=== PATIENT | female | born 1995 | race Caucasian/White ===

== ENCOUNTER 2017-05-06 05:38 | Inpatient (IN) | payer MEDICAID ==
[~2017-05-06] VITALS: Ht 154.9 cm; Wt 79.4 kg
[~2017-05-06 05:38] MED LIST: ACE3 PO; AMO250L PO; FERR-53 PO; HYDEL PO; IBUP800T37 PO; PREN-127 PO; bcp
[2017-05-07] MEDS ORDERED: OXYTOCIN 30 UNIT/D5LR 500 ML 500 ML IV PRN ×2 (05:24)
[2017-05-07] MEDS ORDERED: FAMOTIDINE(*) 20MG/50ML PREMIX 50 ML IVPB PRN (05:24)
[2017-05-07] MEDS ORDERED: TERBUTALINE SULF 1 MG/ML VIAL SUBQ PRN (05:25)
[2017-05-07] MEDS ORDERED: cefOXitin/DEX(*) 2GM/50ML PREM 50 ML IVPB PRN (05:25)
[2017-05-07] MEDS ORDERED: LIDOCAINE 1% LOCAL 300 MG/30ML INJ PRN (05:25)
[2017-05-07] MEDS ORDERED: METOCLOPRAMIDE 10 MG/2 ML SDV IVP PRN (05:25)
[2017-05-07] MEDS ORDERED: ACETAMINOPHEN 500 MG TAB PO PRN (05:25)
[2017-05-07] MEDS ORDERED: LIDOCAINE/SOD BICARB 8.4% SYR SC PRN (05:25)
[2017-05-07] MEDS ORDERED: fentaNYL CITR 100 MCG/2 ML AMP IVP PRN (05:25)
[2017-05-07] MEDS ORDERED: ONDANSETRON 4 MG/2 ML VIAL IVP PRN (05:25)
[2017-05-07] MEDS ORDERED: MISOPROSTOL 25 MCG CAP PV PRN ×2 (05:25→08:50)
[2017-05-07 05:50] VITALS: BP 116/68; Ht 154.9 cm; Wt 79.4 kg
[2017-05-07 06:11] LABS: PLATELET COUNT, AUTOMATED 169 K/uL (150-450)
[2017-05-07] MEDS: LR(*) 1000 ML BAG 1,000 ML IV SCH ×3 (06:12→18:20)
[2017-05-07] MEDS: DLR(*) 1000 ML BAG 1,000 ML IV SCH ×3 (06:43→21:24)
--- NOTE | 2017-05-07 08:36 | History & Physical ---
History of Present Illness Age of Patient: 21 : 2 Para or TPAL: 1001 EDC per LMP: Apr 30, 2017 Estimated Gestational Age: 41 Chief Complaint INDUCTION OF LABOR History of Present Illness The patient is a 21 year old 2 para 1001 admitted at 41 weeks estimated gestational age with an estimated date of delivery 04/30/17 . Patient is admitted with complaint of for induction of labor . No vaginal bleeding. Good movement and occasional contractions. She was evaluated for active labor. She had an uncomplicated course. Her record was reviewed. History Allergies: Coded Allergies: No Known Drug Allergies (Unverified , 09/04/11) Social History: Denies current use of tobacco, alcohol, or recreational drugs. Med Rec Home Meds Reported Medications Vits W-Ca,Fe,Fa(<1MG) ( VITAMINS) 1 Each Tablet, 1 EACH PO DAILY, TAB 11/25/15 Discontinued Scripts Ferrous Sulfate (FERROUS SULFATE) 325 Mg Tablet, 325 MG PO DAILY, #30 TAB 0 Refills Prov:MARÍA ELENA DRAKE MD 11/27/15 Ibuprofen (IBUPROFEN) 800 Mg Tablet, 800 MG PO Q8H, #30 TAB 0 Refills Prov:MARÍA ELENA DRAKE MD 11/27/15 Acetaminophen/Codeine (TYLENOL #3 (OR EQUIV)) 1 Ea Tab, 1-2 EACH PO Q4H Y for PAIN, #14 TAB 0 Refills Prov:MARÍA ELENA DRAKE MD 11/27/15 Exam General Exam Vital Signs Vital Signs Date Time Temp Pulse Resp B/P (MAP) Pulse Ox O2 Delivery O2 Flow Rate FiO2 05/07/17 05:50 99.0 89 18 116/68 (84) 96 Room Air Cardiovascular: Regular Rate and Rhythm Respiratory: Clear to Auscultation Abdomen: Gravid - Non-Tender Extremities: No Edema Cervical Dialation: 2.5 Cervical Effacement (%): 75 Cervical Consistency: Moderate Cervical Position: Mid Station: -2 Presentation: Vertex Uterine Contractions(Q min): 5 Uterine Contraction Strength: Mild Fetus Heart Tones: 130 Heart Tone Variabilty: Moderate FHT Category: II Medical Decision Making Data Points Result Diagram: 05/07/17 0600 Assessment and Plan Problems: (1) Post-dates Assessment & Plan: pitiocin initiated this am with no effect on cervix, moderate consistency. Will likely benefit from softening with prostaglandin. Will stop pitiocin and see if contraction pattern slows Copies to: LELIA CYR MD Problem Qualifiers (1) Post-dates : Post-term type: 40-42 weeks gestation Qualified Codes: O48.0 - Post -term LELIA CYR MD May 07, 2017 08:35
--- NOTE | 2017-05-07 13:26 | Labor Progress Note ---
Labor Subjective Progress Notes Subjective feeling mild uterine contractions Labor Pain: Mild Labor Objective Vital Signs Vital Signs Date Time Temp Pulse Resp B/P (MAP) Pulse Ox O2 Delivery O2 Flow Rate FiO2 05/07/17 05:50 99.0 89 18 116/68 (84) 96 Room Air Cervical Dialation: 3 Cervical Effacement (%): 75 Cervical Consistency: Moderate Cervical Position: Mid Station: -2 Presentation: Vertex Uterine Contractions(Q min): 4 Uterine Contraction Strength: Mild Fetus Heart Tones: 140 Heart Tone Variabilty: Moderate FHT Accelerations: 15X15 FHT Category: I Other Result Diagram: 05/07/17 0600 Assessment and Plan Problems: (1) Post-dates Assessment & Plan: mildly softer cervix, will start pitocin if needed to increase uterine contraction strength, AROM when able Problem Qualifiers (1) Post-dates : Post-term type: 40-42 weeks gestation Qualified Codes: O48.0 - Post -term LELIA CYR MD May 07, 2017 13:26
[2017-05-07] MEDS ORDERED: BUPIVACAINE 0.25% MPF INJ EPI PRN (16:50)
[2017-05-07] MEDS ORDERED: LIDOCAINE/PF 2% 200MG/10ML AMP 200 MG/10 ML AMPUL EPI PRN (16:50)
[2017-05-07] MEDS ORDERED: LIDO/EPI 2% MPF 1:200,000 20ML EPI PRN (16:50)
[2017-05-07] MEDS ORDERED: BUPIVACAINE 0.5% INJ 30ML VIAL EPI PRN (16:50)
[2017-05-07] MEDS ORDERED: FENTANYL/ROPIVACAINE 100 ML BAG EPI PRN (16:50)
[2017-05-07] MEDS ORDERED: fentaNYL CITR 100 MCG/2 ML AMP IT PRN (16:50)
[2017-05-07] MEDS ORDERED: EPIDURAL KEYS XX PRN (17:00)
--- NOTE | 2017-05-07 17:48 | Labor Progress Note ---
Labor Subjective Progress Notes Subjective feeling comfortable with epidural Vaginal Discharge/Fluid: Clear Fluid Labor Pain: Comfortable Labor Objective Vital Signs Vital Signs Date Time Temp Pulse Resp B/P (MAP) Pulse Ox O2 Delivery O2 Flow Rate FiO2 05/07/17 05:50 99.0 89 18 116/68 (84) 96 Room Air Cervical Dialation: 3 Cervical Effacement (%): 80 Cervical Consistency: Soft Cervical Position: Mid Station: -1 Presentation: Vertex Uterine Contractions(Q min): 3 Fetus Heart Tones: 130 Heart Tone Variabilty: Moderate FHT Accelerations: 15X15 FHT Category: I Other Result Diagram: 05/07/17 0600 Assessment and Plan Problems: (1) Post-dates (2) Active labor at term Assessment & Plan: AROM clear fluid. will monitor for cervical change Problem Qualifiers (1) Post-dates : Post-term type: 40-42 weeks gestation Qualified Codes: O48.0 - Post -term LELIA YCR MD May 07, 2017 17:48
--- NOTE | 2017-05-07 18:04 | Anesthesia OB Pre-Anes Eval ---
History of Present Illness Anesthesia Start Date: May 07, 2017 Anesthesia Start Time: 17:03 OB Anesthesia Diagnosis: induction - elective Complications: None. EDC 04/30/17. EDC: Apr 30, 2017 : 2 Para: 1 Vital Signs: 99.0 89 18 116/68 96% Pain Ratin Result Diagram: 05/07/17 0600 Height (Inches): 61.00 Weight (Pounds): 175 BMI Calculated: 33.06 Past Medical History Surgical History: tonsillectomy Previous Anesthesia: epidural Attended Childbirth Classes?: No Hx Anesthesia Reactions: No Hx Family Anesthesia Reaction: No Home Meds Reported Medications Vits W-Ca,Fe,Fa(<1MG) ( VITAMINS) 1 Each Tablet, 1 EACH PO DAILY, TAB 11/25/15 Discontinued Scripts Ferrous Sulfate (FERROUS SULFATE) 325 Mg Tablet, 325 MG PO DAILY, #30 TAB 0 Refills Prov:MARÍA ELENA DRAKE MD 11/27/15 Ibuprofen (IBUPROFEN) 800 Mg Tablet, 800 MG PO Q8H, #30 TAB 0 Refills Prov:MARÍA ELENA DRAKE MD 11/27/15 Acetaminophen/Codeine (TYLENOL #3 (OR EQUIV)) 1 Ea Tab, 1-2 EACH PO Q4H Y for PAIN, #14 TAB 0 Refills Prov:MARÍA ELENA DRAKE MD 11/27/15 Allergies: Coded Allergies: No Known Drug Allergies (Unverified , 09/04/11) Anesthesia OB ROS Neurological: No migraines/headaches, No seizures, No neuropathy, No other Contacts Statement: Glasses ENT: Denies Tooth caps, Denies Loose teeth, Denies Chipped teeth, Denies Dentures, Denies Bridges, Denies Retainers, Denies Veneers, Denies Implants, Denies Tongue ring, Denies Other Pulmonary: No asthma, No smoker (pks/day/yrs), No other Airway Class: lll Cardiovascular ROS: No edema, No arrhythmia, No other GI ROS: clear liquids Last Solids Date: May 06, 2017 Last Solids Time: 19:30 ROS: No Herpes, No STD(s), No Liver Disease, No Renal Disease, No Other Endocrine ROS: No diabetes, No gestational diabetes, No thyroid disorder, No other Musculoskeletal ROS: No low back pain, No low back injury, No scoliosis, No other ASA Classification: 2 Assessment and Plan Anesthesia Plan: CSE Assessment Pain now a 07/25. Requesting analgesia. ABIMAEL BOOTH CRNA May 07, 2017 07:51
--- NOTE | 2017-05-07 18:07 | Procedure Note ---
Anesthetic Placement Note Anesthesia Plan: CSE Permit for Anesthesia Signed: Yes Anesthesia Technique: Patient Sitting Anesthesia Prep: Chlorhexidine Interspace: L 3-4 Local Anesthetic: 1% Lidocaine, 25 Gauge Needle Amount Local - cc's: 2 Anesthesia Needle: 17g Touhy/Schliff Anesthesia Attempts: 1 Loss of Resistance: Normal Saline Depth of LOS (cm): 5 Epidural Needle Placement: No CSF, No Blood, No Parasthesia Intrathecal Needle: 27 Gauge Pencan Cerebral Spinal Fluid: Yes, Clear Catheter Insertion (cm): 5 Catheter Type: Rosenberg - Spring Wound Epidural Dressing: Tegaderm, Tape Anesthesia Tray: Lot Number ([id number]), Expiration Date (2018-01-15), Reference Number ([id number]) Anesthesia Medications: Intrathecal Dose: mcg Fentanyl (15), mg Marcaine MPF (1.75), Time (1711) Epidural Test Dose: 1.5 Lido/Epi (1:200,000), Dose - mL (5) Epidural Loading Dose: 0.2% Ropivicaine, With Fentanyl 2mcg/ml, Dose - ml (6), Time Epidural Infusion: 0.2% Ropivicaine, With Fentanyl 2mcg/ml, Start Time: (1727) Epidural Pump Setting: Bolus Dose - mL (4), Lockout - Minutes (20), Maintenance Rate - mL/hr (6), Maximum per Hour - mL (18) Complications: None Comment: Immediate onset of relief. Patient tolerated procedure well. ABIMAEL BOOTH CRNA May 07, 2017 18:07
--- NOTE | 2017-05-07 20:45 | Labor Progress Note ---
Labor Subjective Progress Notes Subjective comfortable with epidural Vaginal Discharge/Fluid: Bloody Show Labor Pain: Comfortable Labor Objective Vital Signs Vital Signs Date Time Temp Pulse Resp B/P (MAP) Pulse Ox O2 Delivery O2 Flow Rate FiO2 05/07/17 05:50 99.0 89 18 116/68 (84) 96 Room Air Cervical Dialation: 6 Cervical Effacement (%): 95 Cervical Consistency: Soft Cervical Position: Anterior Station: 0 Presentation: Vertex Uterine Contractions(Q min): 3 Uterine Contraction Strength: Strong Fetus Heart Tones: 130 Heart Tone Variabilty: Moderate FHT Category: I Other Result Diagram: 05/07/17 0600 Assessment and Plan Problems: (1) Post-dates (2) Active labor at term Assessment & Plan: making slow progress, IUPC placed will assess uterine contraction strength and adjust as needed Problem Qualifiers (1) Post-dates : Post-term type: 40-42 weeks gestation Qualified Codes: O48.0 - Post -term LELIA CYR MD May 07, 2017 20:45
[2017-05-07] MEDS ORDERED: NS(*) 0.9% 1000 ML BAG 1,000 ML PV PRN (21:58)
[2017-05-07] MEDS ORDERED: BUPIVACAINE 0.5% INJ 30ML VIAL ONE (23:41)
--- NOTE | 2017-05-07 23:50 | Labor Progress Note ---
Labor Subjective Progress Notes Subjective patient pushing Vaginal Discharge/Fluid: Bloody Show Labor Pain: Comfortable Labor Objective Vital Signs Vital Signs Date Time Temp Pulse Resp B/P (MAP) Pulse Ox O2 Delivery O2 Flow Rate FiO2 05/07/17 05:50 99.0 89 18 116/68 (84) 96 Room Air Cervical Dialation: 10 Cervical Effacement (%): 100 Cervical Consistency: Soft Cervical Position: Anterior Station: +1 Uterine Contractions(Q min): 3 Uterine Contraction Strength: Strong Fetus Heart Tones: 150 Heart Tone Variabilty: Moderate FHT Category: II Other Result Diagram: 05/07/17 0600 Assessment and Plan Problems: (1) Post-dates (2) Active labor at term Assessment & Plan: pushed well for an hour no change in station, this weight greater than last, desires c section for CPD Problem Qualifiers (1) Post-dates : Post-term type: 40-42 weeks gestation Qualified Codes: O48.0 - Post -term LELIA CYR MD May 07, 2017 23:50
[2017-05-07] MEDS ORDERED: OXYTOCIN 10 UNIT/ML SDV ONE (23:59)
[2017-05-08] VITALS (31 sets, daily range): BP systolic 92–120; BP diastolic 41–76
[2017-05-08] MEDS ORDERED: MORPHINE PF 5 MG/10 ML AMP ONE
[2017-05-08] MEDS ORDERED: BUPIV/EPI 0.25% 1:200,000 50ML INFIL ONE (00:32)
[2017-05-08] MEDS ORDERED: LIDO/EPI 2% MPF 1:200,000 20ML ONE (00:32)
[2017-05-08] MEDS ORDERED: DEXAMETHASONE SOD 4 MG/ML VIAL ONE (00:44)
[2017-05-08] MEDS ORDERED: PHENYLEPHRINE/NS/PF 0.4MG/10ML ONE (00:44)
[2017-05-08] MEDS ORDERED: OXYTOCIN 10 UNIT/ML SDV ONE ×2 (00:54→01:30)
[2017-05-08] MEDS ORDERED: METHYLERGONOVINE MAL 0.2MG/ML ONE (01:00)
[2017-05-08] MEDS ORDERED: PHENYLEPHRINE 10 MG/1 ML VIAL ONE (01:01)
[2017-05-08] MEDS ORDERED: NS 0.9% 20 ML SDV 20 ML ONE (01:01)
[2017-05-08] MEDS ORDERED: KETOROLAC 30 MG/ML VIAL ONE (01:18)
[2017-05-08] MEDS ORDERED: FAMOTIDINE(*) 20MG/50ML PREMIX 50 ML IVPB PRN (01:42)
[2017-05-08] MEDS ORDERED: OXYTOCIN 30 UNIT/D5LR 500 ML 500 ML IV PRN (01:42)
[2017-05-08] MEDS ORDERED: DLR(*) 1000 ML BAG 1,000 ML IV PRN (01:42)
--- NOTE | 2017-05-08 01:42 | Post Operative Note ---
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 8# 7.4 OZ NORMAL UTERUS OVARIES AND TUBES [id number] Procedure(s): PLTCS Complications: 0 Fluids Fluids: 2300 CC LR IV Estimated Blood Loss: 900 CC Dictated Date OP Note Dictated: May 08, 2017 Time OP Note Dictated: 01:50 Copies to: LELIA CYR MD, JOHN MD May 08, 2017 01:42
[2017-05-08] MEDS ORDERED: PROMETHAZINE 25 MG/ML 1 ML AMP IVP PRN (01:45)
[2017-05-08] MEDS ORDERED: ONDANSETRON 4 MG/2 ML VIAL IV PRN (01:45)
[2017-05-08] MEDS ORDERED: METOCLOPRAMIDE 10 MG/2 ML SDV IV PRN (01:45)
[2017-05-08] MEDS ORDERED: FLUSH 10 ML SYR IVP PRN (01:45)
[2017-05-08] MEDS ORDERED: LANOLIN OINT 7 GM TUBE TP PRN (01:45)
--- NOTE | 2017-05-08 01:58 | Anesthesia Progress Note ---
Progress/Maintenance Anesthesia Note Date: May 07, 2017 Anesthesia Note Time: 20:20 Pain Intensity: 0 Pump: On Pump Rate (ML/HR): 6 Sensory Level: T-10 Motor Level: Bending Knees-Bilateral Dilatation: 4 Position: Right, Tilt Drug Bolus: 0.2% Ropivicaine, Fentanyl 2mcg/ml Report Received From: Other Assessment and Plan Assessment Feeling pressure of contractions but no pain. Anesthesia Stop Day: May 07, 2017 Anesthesia Stop Time: 23:57 Epidural Catheter Removal: Removed Catheter Intact, Yes, Removed by: (Rica Booth CRNA) Removal Date: May 08, 2017 Removal Time: 01:40 Condition Patient to . Epidural used. Local infiltrated in skin for incision but otherwise epidural worked well for surgery. ABIMAEL BOOTH CRNA May 07, 2017 20:42
[2017-05-08] MEDS ORDERED: ACETAMINOPHEN(*)1000 MG/100 ML 100 ML IVPB SCH (03:00)
--- NOTE | 2017-05-08 03:56 | OPERATIVE REPORT 1 ---
EVENT DATE: May 08, 2017 SURGEON: Noé Ragsdale MD SURVEY WORKERS SUPERVISOR: Gisell Pringle CRNA RESEARCH PHARMACIST: Yesica from the OR PREOPERATIVE DIAGNOSIS 1. Intrauterine at 41and 1/7 weeks. 2. Cephalopelvic disproportion. 3. Failure to progress. POSTOPERATIVE DIAGNOSIS 1. Intrauterine at 41and 1/7 weeks. 2. Cephalopelvic disproportion. 3. Failure to progress. PROCEDURE PERFORMED Primary low transverse section. COMPLICATIONS None. FLUIDS 2200 mL of lactated ringers IV. ESTIMATED BLOOD LOSS 900 mL. INDICATIONS The patient is a 21-year-old at 41 and 1/7 weeks estimated gestational age, was admitted for induction of labor for post term. She was initially started on Pitocin, was not responding, was then stopped. She was given Cytotec, which did soften her cervix. She later received Pitocin augmentation, received an epidural. Artificial rupture of membranes was performed with clear fluid. She made slow progress, but then did progress to complete, was then able to make any progress with pushing effectively over an hour. After discussion of risks and alternatives, elects to proceed with primary C section. FINDINGS Male infant with Apgars 8 at 1 minute, 9 at 5 minutes, weighing 3838 grams or 8 pounds, 7.4 ounces, normal uterus, ovaries and tubes. DESCRIPTION OF PROCEDURE After informed consent was obtained, the patient was taken to the operating room with the IV running, placed in a supine position with leftward tilt. She was prepped and draped in a usual fashion. A Pfannenstiel skin incision was made, carried through to the underlying layer of fascia with the Bovie. The fascia was nicked in the midline, extended laterally with Dinh scissors. Bilaterally, the rectus fascia was dissected off the rectus muscles with both blunt and sharp dissection on the superior then inferior aspect of the incision. The rectus muscles were divided in the midline, the peritoneum entered sharply with Metzenbaum scissors. A peritoneal incision was extended superiorly and inferiorly with good visualization of the bladder. Bladder blade was placed. Bladder flap was created with Metzenbaum scissors. Bladder blade was then replaced. A low transverse uterine incision was made with a scalpel. The incision was extended laterally with digital technique of the pulling unit operator. The infants vertex was delivered out of the pelvis and through the uterine incision. The oropharynx and nasopharynx were bulb suctioned. The remainder of the infant delivered with ease. The infant was noted to have spontaneous cry and spontaneous movement of all four extremities. Cord was clamped x 2 and cut, handed to nursing personnel, who were in attendance for delivery. Cord blood was obtained. Placenta delivered intact manually. Uterus was exteriorized and cleared of all clot and debris. Uterine incision was closed with #0-Vicryl in a running-locked fashion. A second imbricating layer of #0-Vicryl was used. [id number] sutures were required in the middle of the incision to create hemostasis. Posterior cul-de-sac was copiously irrigated. Inspection of the uterine incision revealed excellent hemostasis. The uterus was returned to the abdominal cavity. Left and right paracolic gutter were cleared of all clot and debris. Uterine incision was once again inspected, noted to be hemostatic. The peritoneum and the rectus muscles were approximated with 3-0 Vicryl in a running locked fashion. Subfascial compartment was inspected, any bleeding made hemostatic with the Bovie. Irrigation was performed. The fascia was then closed with #0-Vicryl in a running fashion. The subcutaneous space was irrigated, any bleeding made hemostatic with Bovie. The subcutaneous space was approximated with 3-0 Vicryl in a running fashion, the skin closed with mary. All sponge, lap, needle and instrument counts were correct. Patient was taken to the recovery room in stable condition. VIVEK
[2017-05-08] MEDS ORDERED: cefOXitin/DEX(*) 2GM/50ML PREM 50 ML IVPB ONE (05:49)
[2017-05-08] MEDS: KETOROLAC 30 MG/ML VIAL IVP SCH ×3 (06:09→17:41)
[2017-05-08] MEDS ORDERED: BENZOCAINE 20% 60 ML BTL TP PRN (07:25)
--- NOTE | 2017-05-08 07:34 | OB/GYN Progress Note ---
OB Subjective Progress Notes Subjective Pain controlled, Tolerating diet and activity. Baby . Normal lochia GI: NEG Nausea, NEG Vomiting : Voiding Well Pain: Mild OB Objective Physical Exam Vital Signs Date Time Temp Pulse Resp B/P (MAP) Pulse Ox O2 Delivery O2 Flow Rate FiO2 05/08/17 06:00 76 16 109/55 (73) 97 Nasal Cannula 1.0 05/08/17 03:00 98.3 Cardiovascular: Regular Rate and Rhythm Respiratory: Clear to Auscultation Abdomen: Soft, Non-Tender, Non-Distended, Fundus Firm Extremities: No Edema Result Diagram: 05/07/17 0600 Assessment and Plan Problems: (1) Post-dates (2) Active labor at term (3) care following delivery Assessment & Plan: Pain controlled, Tolerating diet and activity. Baby . Normal lochia Problem Qualifiers (1) Post-dates : Post-term type: 40-42 weeks gestation Qualified Codes: O48.0 - Post -term LELIA CYR MD May 08, 2017 07:34
[2017-05-08] MEDS ORDERED: IBUP800T37 PO (07:36)
[2017-05-08] MEDS ORDERED: OXYC-373 PO (07:36)
[2017-05-08] MEDS: FAMOTIDINE 20 MG TAB PO SCH ×2 (08:46→21:12)
[2017-05-08] MEDS: DOCUSATE CALCIUM 240 MG CAP PO SCH ×2 (08:46→21:11)
[2017-05-08] MEDS: SIMETHICONE 80 MG CHEW CHEW SCH ×4 (08:46→21:12)
[2017-05-08] MEDS: GLYCERIN/WITCH HAZEL LEAF 1 PK TOP PRN (08:47)
[2017-05-08] MEDS: ACETAMINOPHEN(*)1000 MG/100 ML 100 ML IVPB SCH ×2 (08:47→15:18)
--- NOTE | 2017-05-08 09:09 | Anesthesia Post Eval Note ---
Anesthesia Post Eval Note 113/53 88 97% Pt able to participate in Eval: Yes Cardiovascular Status: Satisfactory Respiratory Status: Satisfactory Pain Managment: Satisfactory PO Nausea/Vomiting: Satisfactory Temperature Management: Satisfactory Mental Status: Satisfactory, Alert, Oriented X3 Post-Op Hydration Status: Satisfactory, Tolerating PO Well Anesthesia Type: CSE Anesthesia Tolerance: Pain controlled with medication. No PONV. Minimal itching. ABIMAEL BOOTH CRNA May 08, 2017 09:09
[2017-05-08] MEDS ORDERED: INFLUENZA VIRUS VAC 0.5 ML SYR IM ONLY ONE (10:00)
[2017-05-08] MEDS ORDERED: MEASLES,MUMP,RUBELLA VAC 0.5ML SUBQ ONE (10:00)
[2017-05-08] MEDS ORDERED: DIPHTH/TETANUS/ACEL. PERTUSSIS IM ONLY ONE (10:00)
[2017-05-08] MEDS: HYDROmorphone HCL 2 MG TAB PO PRN ×3 (13:08→19:26)
[2017-05-08 13:45] LABS: PLATELET COUNT, AUTOMATED 171 K/uL (150-450)
[2017-05-08] MEDS: FERROUS SULFATE 325 MG TAB PO SCH (16:35)
[2017-05-09] VITALS (31 sets, daily range): BP systolic 98–127; BP diastolic 50–73
[2017-05-09] MEDS: HYDROmorphone HCL 2 MG TAB PO PRN ×5 (00:33→19:30)
[2017-05-09] MEDS: IBUPROFEN 800 MG TAB PO SCH ×4 (00:33→23:52)
[2017-05-09] MEDS: DOCUSATE CALCIUM 240 MG CAP PO SCH ×2 (08:11→20:57)
[2017-05-09] MEDS: FERROUS SULFATE 325 MG TAB PO SCH ×2 (08:11→18:11)
[2017-05-09] MEDS: FAMOTIDINE 20 MG TAB PO SCH ×2 (08:11→20:57)
[2017-05-09] MEDS: SIMETHICONE 80 MG CHEW CHEW SCH ×4 (08:11→20:57)
--- NOTE | 2017-05-09 08:16 | OB/GYN Progress Note ---
OB Subjective Progress Notes Subjective Doing good this morning. Reports getting tired really easy when walking. Does also report that it feels like her heart is racing when she walks or moves. Denies any abnormal vaginal bleeding. Reports bleeding is very similar to her last delivery. . Tolerating regular diet. Ambulatory. GI: NEG Nausea, NEG Vomiting, NEG Flatus, NEG Bowel Movement : Voiding Well, Vaginal Bleeding, Moderate Pain: Mild, Tolerating PO Pain Meds Neurological: No Headache, No Other Eyes: No Visual Disturbances OB Objective Physical Exam Vital Signs Date Time Temp Pulse Resp B/P (MAP) Pulse Ox O2 Delivery O2 Flow Rate FiO2 05/09/17 04:25 98.4 88 16 110/63 (79) 94 Room Air 05/09/17 00:45 1.0 General Appearance: Alert/Awake/No Acute Distress Neurological: No Gross deficits Eyes: Normal Extraocular Movement & Vison, PERRLA ENT: Normal Neck: No Masses Cardiovascular: Normal Rhythm & Peripheral Pulses, Regular Rate and Rhythm Respiratory: No Respiratory Distress, Clear to Auscultation Abdomen: Soft, Non-Tender, Non-Distended, Fundus Firm Incision: Clean, Dry, Intact, [place] : Normal Musculoskeletal: No Weakness/Pain Extremities: No Edema Psychological: Alert & Oriented X3, Appropriate Mood & Affect Result Diagram: 05/09/17 0707 Assessment and Plan 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 Increase ambulation. See notes fo anemia. (4) ACUTE POSTHEMORRHAGIC ANEMIA Assessment & Plan: Pt typed and crossed for 2 units PRBC. Will transfuse at least 1 unit possibly both. Discussed with patient who agrees to receiving blood products. Problem Qualifiers (1) Post-dates : Post-term type: 40-42 weeks gestation Qualified Codes: O48.0 - Post -term FOUZIA ALEJANDRA May 09, 2017 08:16
[2017-05-09] MEDS ORDERED: NS(*) 0.9% 500 ML BAG 500 ML ONE (09:44)
--- NOTE | 2017-05-09 13:29 | OB/GYN Progress Note ---
OB Subjective Progress Notes Subjective STILL FEELING WEAK GI: POS Flatus, NEG Nausea, NEG Vomiting Pain: Mild OB Objective Physical Exam Vital Signs Date Time Temp Pulse Resp B/P (MAP) Pulse Ox O2 Delivery O2 Flow Rate FiO2 05/09/17 12:42 91 16 05/09/17 12:37 98.3 107/50 05/09/17 11:39 94 Room Air 05/09/17 07:00 1.0 Intake and Output 05/10/17 07:00 Intake Total 250 ml Output Total 300 ml Balance -50 ml Blood Product 250 ml Output Urine Total 300 ml # Voids 3 General Appearance: Alert/Awake/No Acute Distress Neurological: No Gross deficits Eyes: Normal Extraocular Movement & Vison, PERRLA ENT: Normal Neck: No Masses Cardiovascular: Normal Rhythm & Peripheral Pulses, Regular Rate and Rhythm Respiratory: No Respiratory Distress, Clear to Auscultation Abdomen: Soft, Non-Tender, Non-Distended, Bowel Sounds Present, Fundus Firm Incision: Clean, Dry, Intact, [place] : Normal Musculoskeletal: No Weakness/Pain Extremities: No Edema Psychological: Alert & Oriented X3, Appropriate Mood & Affect Result Diagram: 05/09/17 0707 Assessment and Plan Problems: (1) Post-dates (2) Active labor at term (3) care following delivery (4) ACUTE POSTHEMORRHAGIC ANEMIA Assessment & Plan: WILL TRANSFUSE 2ND UNITS OF BLOOD, ADD 1 UNIT OF FFP AND CHECK CBC AND ASSESS FOR SYMPTOMS OF ANEMIA AFTER TRANSFUSION Problem Qualifiers (1) Post-dates : Post-term type: 40-42 weeks gestation Qualified Codes: O48.0 - Post -term LELIA CYR MD May 09, 2017 13:29
[2017-05-09 18:47] LABS: PLATELET COUNT, AUTOMATED 150 K/uL (150-450)
[2017-05-10 01:02] VITALS: BP 125/63
--- NOTE | 2017-05-10 03:32 | OB/GYN Discharge Summary ---
Discharge Summary Reason for Hosp/Final Diag: (1) Post-dates (2) Active labor at term (3) care following delivery Hospital Course & Plan: IOL, FTP, PLTCS, had uterine atony, and symptomatic anemia, received 2 units PRBCS, and 1 unit FFP which improved symptoms. on day 2, Pain controlled, Tolerating diet and activity. (4) ACUTE POSTHEMORRHAGIC ANEMIA Lates Vital Signs Vital Signs Date Time Temp Pulse Resp B/P (MAP) Pulse Ox O2 Delivery O2 Flow Rate FiO2 05/10/17 01:02 99.1 104 16 125/63 (83) 92 Room Air 05/09/17 07:00 1.0 Weight (Pounds): 175 Result Diagram: 05/10/17 0202 Condition: Improved Discharge: Home, Self [facility] Meds Active Scripts Ferrous Sulfate (FERROUS SULFATE) 325 Mg Tablet.dr, 1 TAB PO BID, #60 TAB 0 Refills Prov:LELIA RAGSDALE MD 05/10/17 Docusate Calcium (DOCUSATE CALCIUM) 240 Mg Capsule, 1 CAP PO BID, #30 CAPSULE 0 Refills Prov:LELIA RAGSDALE MD 05/10/17 Oxycodone Hcl/Acetaminophen (OXYCODONE-ACETAMINOPHEN 5-325) 1 Each Tablet, 1-2 EACH PO Q4H Y for PAIN, #30 TAB 0 Refills TAKE 1-2 TABLET NEEDED FOR PAIN - NO CLOSER THAN EVERY 4 HOURS. Prov:LELIA RGASDALE MD 05/08/17 Ibuprofen (IBUPROFEN) 800 Mg Tablet, 1 TAB PO Q8H, #30 TAB 0 Refills Take with food every 8 hours. Prov:LELIA RAGSDALE MD 05/08/17 Reported Medications Vits W-Ca,Fe,Fa(<1MG) ( VITAMINS) 1 Each Tablet, 1 EACH PO DAILY, TAB 11/25/15 Discontinued Scripts Ferrous Sulfate (FERROUS SULFATE) 325 Mg Tablet, 325 MG PO DAILY, #30 TAB 0 Refills Prov:MARÍA ELENA DRAKE MD 11/27/15 Ibuprofen (IBUPROFEN) 800 Mg Tablet, 800 MG PO Q8H, #30 TAB 0 Refills Prov:MARÍA ELENA DRAKE MD 11/27/15 Acetaminophen/Codeine (TYLENOL #3 (OR EQUIV)) 1 Ea Tab, 1-2 EACH PO Q4H Y for PAIN, #14 TAB 0 Refills Prov:MARÍA ELENA DRAKE MD 11/27/15 Follow up with: Dr. Ragsdale [phone] Follow up in: 6 wks PP or PO, 2 wks PO Discharge Diet: As Tolerates Discharge Activity: Pelvic Rest Copies to: LELIA RAGSDALE MD Problem Qualifiers (1) Post-dates : Post-term type: 40-42 weeks gestation Qualified Codes: O48.0 - Post -term LELIA RAGSDALE MD May 10, 2017 03:32
[2017-05-10] MEDS ORDERED: FERR-41 PO (03:33)
[2017-05-10] MEDS ORDERED: DOCU240C67 PO (03:33)
[2017-05-10 03:50] VITALS: BP 104/53
[2017-05-10 07:25] VITALS: BP 110/63
[2017-05-10] MEDS: IBUPROFEN 800 MG TAB PO SCH (08:15)
[2017-05-10] MEDS: FERROUS SULFATE 325 MG TAB PO SCH (08:15)
[2017-05-10] MEDS: FAMOTIDINE 20 MG TAB PO SCH (09:20)
[2017-05-10] MEDS: SIMETHICONE 80 MG CHEW CHEW SCH ×2 (09:20→13:08)
[2017-05-10] MEDS: DOCUSATE CALCIUM 240 MG CAP PO SCH (09:21)
[2017-05-10 10:16] LABS: PLATELET COUNT, AUTOMATED 158 K/uL (150-450)
[2017-05-10] MEDS: GLYCERIN/WITCH HAZEL LEAF 1 PK TOP PRN (11:22)
--- NOTE | 2017-05-10 12:40 | OB/GYN Progress Note ---
OB Subjective Progress Notes Subjective Doing good this morning. Tolerating regular diet. Feels better after receiving blood. Lochia appropriate. . GI: NEG Nausea, NEG Vomiting, NEG Flatus, NEG Bowel Movement : Voiding Well, Vaginal Bleeding, Moderate Pain: Mild Neurological: No Headache, No Other Eyes: No Visual Disturbances OB Objective Physical Exam Vital Signs Date Time Temp Pulse Resp B/P (MAP) Pulse Ox O2 Delivery O2 Flow Rate FiO2 05/10/17 07:25 97.9 84 14 110/63 (79) 92 Room Air 05/09/17 07:00 1.0 Intake and Output 05/11/17 07:00 Intake Total 360 ml Balance 360 ml Intake Oral 360 ml General Appearance: Alert/Awake/No Acute Distress Neurological: No Gross deficits Eyes: Normal Extraocular Movement & Vison, PERRLA ENT: Normal Neck: No Masses Cardiovascular: Normal Rhythm & Peripheral Pulses, Regular Rate and Rhythm Respiratory: No Respiratory Distress, Clear to Auscultation Abdomen: Soft, Non-Tender, Non-Distended, Bowel Sounds Present, Fundus Firm Incision: Clean, Dry, Intact, [place] : Normal Musculoskeletal: No Weakness/Pain Extremities: No Cyanosis,Clubbing or Edema, No Edema Integumentary: Skin Intact without Lesions or Rash Psychological: Alert & Oriented X3, Appropriate Mood & Affect Result Diagram: 05/10/17 1003 05/10/17 1003 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 Follow up with Dr. Ragsdale in 2 weeks. (2) Active labor at term (3) care following delivery (4) ACUTE POSTHEMORRHAGIC ANEMIA Problem Qualifiers (1) Post-dates : Post-term type: 40-42 weeks gestation Qualified Codes: O48.0 - Post -term FOUZIA ALEJANDRA DO May 10, 2017 12:40
[2017-05-10 13:15] VITALS: BP 113/71
== END 2017-05-10 16:20 | disposition home or self-care (01) | DRG 765 ==
LOC: OB 05-07 05:22
PROVIDERS: ADMIT Obstetrics & Gynecology; ATTEND Obstetrics & Gynecology
PROC: 10907ZC Drainage of Amniotic Fluid, Therapeutic from Products of Conception, Via Natural or Artificial Opening (ICD-10-PCS; 2017-05-07)
PROC: 10H07YZ Insertion of Other Device into Products of Conception, Via Natural or Artificial Opening (ICD-10-PCS; 2017-05-07)
PROC: 3E0P7GC Introduction of Other Therapeutic Substance into Female Reproductive, Via Natural or Artificial Opening (ICD-10-PCS; 2017-05-07)
PROC: 10D00Z1 Extraction of Products of Conception, Low, Open Approach (ICD-10-PCS; principal; 2017-05-08 00:20)
PROC: 30233N1 Transfusion of Nonautologous Red Blood Cells into Peripheral Vein, Percutaneous Approach (ICD-10-PCS; 2017-05-09)
PROC: 30233K1 Transfusion of Nonautologous Frozen Plasma into Peripheral Vein, Percutaneous Approach (ICD-10-PCS; 2017-05-09)
DX: O48.0 Post-term pregnancy (principal); D62 Acute posthemorrhagic anemia; Z37.0 Single live birth; O62.1 Secondary uterine inertia; Z3A.41 41 weeks gestation of pregnancy; Z91.011 Allergy to milk products; Z90.89 Acquired absence of other organs; Z86.59 Personal history of other mental and behavioral disorders; O99.03 Anemia complicating the puerperium; O65.4 Obstructed labor due to fetopelvic disproportion, unspecified
CPT/HCPCS: 36415; 36430; 82040; 82247; 82310; 82374; 82435; 82565; 82947; 84075; 84132; 84155; 84295; 84450; 84460; 84520; 85014; 85018; 85025; 86850; 86900; 86901; 86920; J0131; J0694; J1100; J1885; J2210; J2270; J2370; J2405; J2590; J3490; J7040; J7050; J7120; P9016; P9017